=== PATIENT | female | born 1990 | race Caucasian/White ===

== ENCOUNTER 2018-03-01 14:37 | Emergency (ER) | payer OTHER ==
[2018-03-01 15:10] LABS: BASO % 0.4 % (0.0-1.0); EOS % 0.3 % (0.0-3.0); HEMATOCRIT 36.2 % (36.0-47.0); HEMOGLOBIN 12.7 g/dl (12.0-15.5); IMMATURE GRANULOCYTE % 0.4 % (0-3.0); LYMPH # 2.9 10^3/uL (1.5-6.5); MEAN CORPUSCULAR HEMOGLOBIN 29.5 pg (27.0-33.0); MEAN CORPUSCULAR HGB CONC 35.1 g/dl (32.0-36.5); MONO # 0.7 10^3/uL (0.0-0.8); MONO % 7.2 % (0.0-5.0); NEUTROPHILS # 5.9 10^3/uL (1.8-7.7); NEUTROPHILS % 61.7 % (36.0-66.0); PLATELET COUNT, AUTOMATED 265 10^3/uL (150-450); RED BLOOD COUNT 4.31 10^6/uL (4.00-5.40); RED CELL DISTRIBUTION WIDTH 12.8 % (11.5-14.5); WHITE BLOOD COUNT 9.5 10^3/uL (4.0-10.0)
[2018-03-01 15:21] LABS: KETONE, URINE AUTO RFX NEGATIVE (NEGATIVE); LEUKOCYTE ESTERASE UR AUTO RFX NEGATIVE (NEGATIVE); NITRITE, URINE AUTO RFX NEGATIVE (NEGATIVE); RBC, URINE AUTO RFX 0 /HPF (0-3); SQUAM EPITHELIAL CELL UR AURFX 1 /HPF (0-6); WBC, URINE AUTO RFX 0 /HPF (0-3)
[2018-03-01 16:15] LABS: HCG, SERUM QUANTITATIVE 121149 MIU/ML
== END 2018-03-01 20:19 | disposition home or self-care (01) ==
LOC: M ED 14:37
DX: O44.01 Complete placenta previa NOS or without hemorrhage, first trimester (principal); O26.891 Other specified pregnancy related conditions, first trimester; R10.30 Lower abdominal pain, unspecified; Z3A.09 9 weeks gestation of pregnancy
CPT/HCPCS: 76801

== ENCOUNTER 2018-04-25 13:29 | Emergency (ER) | payer OTHER ==
[2018-04-25 15:18] LABS: HEMATOCRIT 32.6 % (36.0-47.0); HEMOGLOBIN 11.5 g/dl (12.0-15.5); MEAN CORPUSCULAR HEMOGLOBIN 30.5 pg (27.0-33.0); MEAN CORPUSCULAR HGB CONC 35.3 g/dl (32.0-36.5); MEAN CORPUSCULAR VOLUME 86.5 fl (80.0-96.0); PLATELET COUNT, AUTOMATED 232 10^3/uL (150-450); RED BLOOD COUNT 3.77 10^6/uL (4.00-5.40); RED CELL DISTRIBUTION WIDTH 13.5 % (11.5-14.5); WHITE BLOOD COUNT 7.3 10^3/uL (4.0-10.0)
[2018-04-25 15:20] LABS: ANION GAP 8 MEQ/L (8-16); BLOOD UREA NITROGEN 6 MG/DL (7-18); CALCIUM LEVEL 8.7 MG/DL (8.5-10.1); CARBON DIOXIDE LEVEL 26 MEQ/L (21-32); CHLORIDE LEVEL 105 MEQ/L (98-107); CREATININE FOR GFR 0.61 MG/DL (0.55-1.30); GLOMERULAR FILTRATION RATE > 60.0 (>60); GLUCOSE, FASTING 90 MG/DL (70-100); HCG, SERUM QUANTITATIVE 7365 MIU/ML; POTASSIUM SERUM 3.7 MEQ/L (3.5-5.1); SODIUM LEVEL 139 MEQ/L (136-145)
[2018-04-25 15:40] LABS: APPEARANCE, URINE CLEAR (CLEAR); BACTERIA, URINE AUTO NEGATIVE (NEGATIVE); BILIRUBIN, URINE AUTO NEGATIVE (NEGATIVE); BLOOD, URINE BLOOD NEGATIVE (NEGATIVE); COLOR, URINE STRAW (YELLOW); GLUCOSE, URINE (UA) AUTO NEGATIVE (NEGATIVE); KETONE, URINE AUTO NEGATIVE (NEGATIVE); LEUKOCYTE ESTERASE, URINE AUTO NEGATIVE (NEGATIVE); MUCUS, URINE SMALL (NEGATIVE); NITRITE, URINE AUTO NEGATIVE (NEGATIVE); PROTEIN, URINE AUTO NEGATIVE (NEGATIVE); RBC, URINE AUTO 3 /HPF (0-3); SPECIFIC GRAVITY URINE AUTO 1.004 (1.002-1.035); SQUAMOUS EPITHELIAL CELL UR AU 1 /HPF (0-6); UROBILINOGEN, URINE AUTO 0.2 mg/dL (0.0-2.0); WBC, URINE AUTO 2 /HPF (0-3)
[2018-04-25] MEDS: ACETAMINOPHEN 325 MG TAB PO (16:25)
== END 2018-04-25 17:35 | disposition home or self-care (01) ==
LOC: M ED 13:29
DX: O20.9 Hemorrhage in early pregnancy, unspecified (principal); Z3A.17 17 weeks gestation of pregnancy
CPT/HCPCS: 76811

== ENCOUNTER 2018-05-29 17:51 | Outpatient (CLI) | payer OTHER ==
[2018-05-29 19:02] LABS: HEMOGLOBIN 11.2 g/dl (12.0-15.5); MEAN CORPUSCULAR HEMOGLOBIN 30.9 pg (27.0-33.0); MEAN CORPUSCULAR VOLUME 88.2 fl (80.0-96.0); PLATELET COUNT, AUTOMATED 255 10^3/uL (150-450); RED BLOOD COUNT 3.63 10^6/uL (4.00-5.40); RED CELL DISTRIBUTION WIDTH 12.6 % (11.5-14.5); WHITE BLOOD COUNT 7.5 10^3/uL (4.0-10.0)
== END 2018-05-29 21:10 | disposition home or self-care (01) ==
LOC: M LDO 17:51
DX: O99.89 Other specified diseases and conditions complicating pregnancy, childbirth and the puerperium (principal); O9A.212 Injury, poisoning and certain other consequences of external causes complicating pregnancy, second trimester; W19.XXXA Unspecified fall, initial encounter; Y92.89 Other specified places as the place of occurrence of the external cause; Z3A.21 21 weeks gestation of pregnancy
CPT/HCPCS: G0463

== ENCOUNTER 2018-08-12 04:47 | Outpatient (CLI) | payer OTHER ==
[~2018-08-12] VITALS: Ht 167.6 cm; Wt 82.0 kg
[~2018-08-12 04:47] MED LIST: ACET50TA PO; FE T325T PO; IBUP80TA PO; PRENTAB9 PO; PSEU30TA21 PO; RIGHTAB2 PO; SUDA15LI2 PO
[2018-08-12 05:06] VITALS: BP 121/73
--- NOTE | 2018-08-12 06:57 | IPNPDOC ---
Text Note Date of Service The patient was seen on 08/12/18. NOTE Triage Note Sparkle is a 28yo with SIUP at 32w5d by 9wk u/s presenting with gush of fluid after taking a bath in the middle of the night. It was clear. Leaking did not continue. No ctx. Feels good movement. No vaginal bleeding. No f/c/n/v/CP/SOB. Patient has not been seen in clinic recently. She cancelled her last appt because she had a conflict with class. She reports she did do her 28wk labs. O positive blood type. 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 No pooling, negative valsalva. nitrazine neg. SCE: cl/th/high TAUS: arce IUP with cephalic presentation, BETH 12.6cm, +FCA, +FM, anterior placenta Cat I FHRT with +accels, -decels, mod loretta [place]: no ctx Labs: Negative ferning, negative nitrazine Assessment: Sparkle is a 28yo with SIUP at 32w5d by 9wk u/s with NO evidence of LOF based on negative nitrazine/ferning/valsalva/pooling. BETH 12.6cm. Cephalic. No regular ctx. Cat I FHRT. Patient has not had reliable care in this , overdue for an appt in clinic. Plan: -Safe for discharge home -Discussed with patient need for good care and reliable future appts. Instructed her to call the clinic later today to make an appt for as soon as available. -Discussed return precautions at length -Encouraged increased hydration MD GINNY Castelan,Tomer, I+O VSTomer, I+O Vital Signs Date Time Temp Pulse Resp B/P (MAP) Pulse Ox O2 Delivery O2 Flow Rate FiO2 08/12/18 05:06 98.3 102 18 121/73 (89) Adri Treadwell MD Aug 12, 2018 06:51
== END 2018-08-12 07:36 | disposition home or self-care (01) ==
LOC: M LDO 04:47
PROVIDERS: ATTEND Obstetrics & Gynecology
DX: O26.893 Other specified pregnancy related conditions, third trimester (principal); O47.03 False labor before 37 completed weeks of gestation, third trimester; Z3A.32 32 weeks gestation of pregnancy
CPT/HCPCS: 59025; G0378; G0463

== ENCOUNTER 2018-09-20 17:37 | Inpatient (IN) | payer OTHER ==
[2018-09-20] VITALS (8 sets, daily range): BP systolic 111–141; BP diastolic 70–96
[~2018-09-20] VITALS: Ht 167.6 cm; Wt 87.0 kg
[~2018-09-20 17:37] MED LIST changes: -ACET50TA PO; +MAPA500T17 PO
[2018-09-20] MEDS ORDERED: METF10004 PO (17:46)
[2018-09-20] MEDS ORDERED: PENICILLIN G POTASSIUM IV 5 MU in D5W MINI-BAG PLUS 100 ML IV STA (18:11)
[2018-09-20] MEDS ORDERED: LACTATED RINGER'S 1000 ML IV STA (18:11)
[2018-09-20] MEDS ORDERED: LR 1,000 ML IV SCH ×2 (18:11→21:53)
--- NOTE | 2018-09-20 18:27 | HPEPDOC ---
Obstetrical History & Physical General Date of Admission Sep 20, 2018 at 18:10 History of Present Illness 28 y/o at 38+1 with SROM mid-afternoon, clear fluid continuous since. No VB/reg ctx's. Irreg ctx's only. Pos FM. Preg c/b A2GDM, on metformin 1000 BID, chart review shows good control after metformin started Chief Complaint: LOF, term Information Provided By: Patient Care Care: Limited Care (gaps in care 9 to 19 wks and 24-34 wks) Dating Final EDC by: 1st trimester (US) (8 wk scan) Past Medical History Past Obstetrical History : Past Obstetrical History: Multigravida Type of Delivery: Spontaneous Vaginal Del. 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[employer]AL History: No pertinent history Past Medical History Medical History denies Surgical History: Tonsilectomy, [place] teeth Family History Significant Family History: No pertinent family hx Social History Marital Status: Family situation: Spouse/partner home Psychosocial History: No pertinent psych hx * Smoker: non-smoker Alcohol: Denies Drugs: denies Abuse Violence Screening Have you been hit/kicked/slapp: No Have you been sexually assault: No Imunizations Tdap status: current Influenza Status: current Allergies Coded Allergies: No Known Allergies (Unverified , 08/07/13) Medications Scheduled Metformin Hydrochloride (Metformin HCl) 1,000 Mg Tab, 1,000 MG PO BID Multivitamins/ ( 27-0.8 mg) 1 Tab Tab, 1 TAB PO DAILY Physical Examination Physical Examination GENERAL: Alert and oriented times three. ABDOMEN: Gravid and non-tender to touch. FETUS: Is vertex (VTX) by sterile vaginal examination (SVE), 3-4/70/-2, EFW 8.5- 9 lbs EXTREMITIES: No edema. Vital Signs/I&O Vital Signs Date Time Temp Pulse Resp B/P (MAP) Pulse Ox O2 Delivery O2 Flow Rate FiO2 09/20/18 17:49 97 18 139/92 (108) 09/20/18 17:43 98.5 Laboratory Data Urine Culture: Contaminated Pertinent Laboratoy Data Blood Type: O+ RBC Antibody Screen: Negative HIV: Negative Hepatitis B: Negative Hepatitis C: Unknown Rapid Plasma Reagin: Nonreactive Rubella: Immune Varicella: Immune Chlamydia/Gonorrhea: Negative Group B Streptococcus: Positive Glucose Tolerance Test: 147 Anatomy Ultrasound Ultrasound Date: Sep 11, 2018 Placenta Location: Posterior Normal Anatomy: Yes (on anatomy scan 3DEC normal anatomy. 27MAR grth scan was 3653, >90%ile) Assessment Variability: Moderate Accelerations: Positive Decelerations: Prolonged (x1 just now) Tocometer Contractions: Yes Frequency: irregular Assessment/Plan Assessment SROM, GDMA2 Plan Admit and orient. Eye Technician and consent. Diet: clears Group B Streptococcus (GBS) pos, PCN per SOP Labs and intravenous (IV) per unit protocol. Counseled on Pitocin and induction of labor (IOL). Lactated Ringers (LR): Bolus 1000 mL per SOP if desires epidural, then at 125 mL/hr. Anticipate normal spontaneous delivery () C-S as appropriate. GALILEO RUSH MD Sep 20, 2018 18:27
[2018-09-20 18:49] LABS: HEMATOCRIT 29.5 % (36.0-47.0); MEAN CORPUSCULAR HEMOGLOBIN 22.9 pg (27.0-33.0); MEAN CORPUSCULAR HGB CONC 30.5 g/dl (32.0-36.5); MEAN CORPUSCULAR VOLUME 75.1 fl (80.0-96.0); PLATELET COUNT, AUTOMATED 253 10^3/uL (150-450); RED BLOOD COUNT 3.93 10^6/uL (4.00-5.40); WHITE BLOOD COUNT 8.8 10^3/uL (4.0-10.0)
[2018-09-20 19:43] LABS: BLOOD UREA NITROGEN 9 MG/DL (7-18); CALCIUM LEVEL 8.3 MG/DL (8.5-10.1); CARBON DIOXIDE LEVEL 21 MEQ/L (21-32); CHLORIDE LEVEL 106 MEQ/L (98-107); CREATININE FOR GFR 0.62 MG/DL (0.55-1.30); GLOMERULAR FILTRATION RATE > 60.0 (>60); GLUCOSE, FASTING 95 MG/DL (70-100); POTASSIUM SERUM 4.2 MEQ/L (3.5-5.1); SODIUM LEVEL 137 MEQ/L (136-145)
[2018-09-20] MEDS ORDERED: OXYTOCIN DRIP 30 UNITS in APPROPRIATE DILUENT 1 EA IV SCH (22:00)
[2018-09-20] MEDS: PENICILLIN G POTASSIUM IV 2.5 MU in APPROPRIATE DILUENT 1 EA IV SCH (22:50)
[2018-09-20] MEDS ORDERED: FENTANYL 2MCG/ML ROPIVACAINE 0.2% IN 0.9% NACL 100ML IVBAG As Ordered ONE (23:35)
[2018-09-21] VITALS (26 sets, daily range): BP systolic 104–144; BP diastolic 56–94
[2018-09-21] MEDS ORDERED: REFRIGERATOR IV KEYS XX PRN (00:16)
[2018-09-21] MEDS ORDERED: ePHEDrine SULFATE 25 MG/5 ML(5MG/ML) SYRINGE IV PRN (00:16)
[2018-09-21] MEDS ORDERED: ONDANSETRON 4MG/2ML VIAL (J2405) IV PRN ×3 (00:16→06:15)
[2018-09-21] MEDS ORDERED: diphenhydrAMINE INJ 50MG/ML VIAL (J1200) IV PRN ×2 (00:16→05:35)
[2018-09-21] MEDS ORDERED: NALOXONE INJ 0.4 MG/1 ML VIAL (J2310) IV PRN ×3 (00:16→05:35)
[2018-09-21] MEDS ORDERED: FENTANYL/ROPIVACAINE/NACL BAG 100 ML EPIDURAL SCH (00:16)
[2018-09-21] MEDS ORDERED: EPIDURAL/PCA KEYS XX PRN (00:16)
[2018-09-21] MEDS ORDERED: EPIDURAL COMMENT XX SCH (00:16)
[2018-09-21] MEDS ORDERED: LACTATED RINGER'S 1000 ML IV PRN (00:16)
[2018-09-21] MEDS: PENICILLIN G POTASSIUM IV 2.5 MU in APPROPRIATE DILUENT 1 EA IV SCH (03:12)
--- NOTE | 2018-09-21 03:58 | IPNPDOC ---
Text Note Date of Service The patient was seen on 09/21/18. NOTE Late note for 2330, 5apr exam FHT Cat 2, a few prolonged decels with pitocin, now off /2 Desires an epidural, this is fine. Recheck in 4 hrs, sooner prn. Sessions VS,Tomer, I+O VSTomer I+O Laboratory Tests 09/20/18 18:29 Red Blood Count 3.93 L, Mean Corpuscular Volume 75.1 L, Mean Corpuscular Hemoglobin 22.9 L, Mean Corpuscular Hemoglobin Concent 30.5 L, Red Cell Distribution Width 16.5 H, Calcium Level 8.3 L Vital Signs Date Time Temp Pulse Resp B/P (MAP) Pulse Ox O2 Delivery O2 Flow Rate FiO2 09/21/18 02:00 81 121/68 (85) 09/20/18 23:46 97.9 09/20/18 17:49 18 I&O- Last 24 Hours up to 6 AM 09/21/18 06:00 Intake Total 2250 ml Output Total 850 ml Balance 1400 ml SESSIONSGALILEO MD Sep 21, 2018 03:58
--- NOTE | 2018-09-21 04:15 | IPNPDOC ---
Text Note Date of Service The patient was seen on 09/21/18. NOTE Pit on again, was up to 6 mu/min Off now for a prolonged decel 1 hr ago Cx 5/70/-2, minimal change a/p: On the edge of latent to active labor. Plan on recheck when MVU's are >2 00 for 2 hours, will see if this happens w/o pitocin on board, if does not happen in ~3-4 hours, will start pitocin for the third time, although reluctantly due to her h/o prolonged decels within ~1 hr of using this prior x2. Reluctant to call an arrest of dilation until at least active labor due to her h/o prior vag delivery. Sessions VS,Tomer, I+O VS, Tomer I+O Laboratory Tests 09/20/18 18:29 Red Blood Count 3.93 L, Mean Corpuscular Volume 75.1 L, Mean Corpuscular Hemoglobin 22.9 L, Mean Corpuscular Hemoglobin Concent 30.5 L, Red Cell Distribution Width 16.5 H, Calcium Level 8.3 L Vital Signs Date Time Temp Pulse Resp B/P (MAP) Pulse Ox O2 Delivery O2 Flow Rate FiO2 09/21/18 02:00 81 121/68 (85) 09/20/18 23:46 97.9 09/20/18 17:49 18 I&O- Last 24 Hours up to 6 AM 09/21/18 06:00 Intake Total 2250 ml Output Total 850 ml Balance 1400 ml SESSIONS,GALILEO Mendez MD Sep 21, 2018 04:15
[2018-09-21] MEDS ORDERED: ceFAZolin 2 GM/D5W 50 ML IV BAG (J0690 PER 500MG) As Ordered ONE (04:28)
[2018-09-21] MEDS ORDERED: AZITHROMYCIN INJ 500MG VIAL (J0456) As Ordered ONE (04:28)
[2018-09-21] MEDS ORDERED: BICITRA 30ML SOLN UDC As Ordered ONE (04:28)
[2018-09-21] MEDS ORDERED: AZITHROMYCIN INJ 500 MG, VIAL MATE ADAPTER 1 EACH in D5W 250 ML IV ONE (04:30)
[2018-09-21] MEDS ORDERED: BICITRA 30ML SOLN UDC PO ONE (04:30)
[2018-09-21] MEDS ORDERED: NALBUPHINE HCL 10 MG/ML AMP (J2300) IV PRN (05:35)
[2018-09-21] MEDS ORDERED: METOCLOPRAMIDE INJ 10MG/2ML VIAL (J2765) IV PRN ×2 (05:35→06:15)
[2018-09-21] MEDS ORDERED: OXYTOCIN INJ 10 UNITS/ML VIAL (J2590) As Ordered ONE (05:41)
[2018-09-21] MEDS ORDERED: dexameTHASONE 4 MG/ML 1ML VIAL (J1100) As Ordered ONE (05:41)
[2018-09-21] MEDS ORDERED: fentaNYL 100 MCG/2 ML INJECTION (J3010) As Ordered ONE (05:41)
[2018-09-21] MEDS ORDERED: LIDOCAINE 2% W/EPIN INJ 20ML **PRES FREE As Ordered ONE (05:41)
[2018-09-21] MEDS ORDERED: KETOROLAC 60 MG/2 ML VIAL (J1885) As Ordered ONE (05:41)
[2018-09-21] MEDS ORDERED: KETAMINE HCL 200 MG/20 ML VIAL As Ordered ONE (05:41)
[2018-09-21] MEDS ORDERED: SODIUM BICARBONATE 8.4% INJ 50MEQ 50 ML VIAL As Ordered ONE (05:41)
[2018-09-21] MEDS ORDERED: MORPHINE PRES-FREE INJ 10 MG/10 ML VIAL (J2274) As Ordered ONE (05:42)
[2018-09-21] MEDS ORDERED: MIDAZOLAM INJ 2 MG/2 ML VIAL (J2250) As Ordered ONE (05:42)
[2018-09-21 05:58] LABS: CORD GAS ABE A -3.7; CORD GAS HCO3 A 25.3 MEQ/L; CORD GAS O2 SAT A 38.9 %; CORD GAS PCO2 A 60.5 mmHg; CORD GAS PH A 7.239 UNITS; CORD GAS PO2 A 20.2 mmHg; CORD GAS SBC A 19.9 MEQ/L; CORD GAS TCO2 A 27.1 MEQ/L
[2018-09-21 06:01] LABS: CORD GAS ABE V -3.7; CORD GAS HCO3 V 22.8 MEQ/L; CORD GAS O2 SAT V 88.5 %; CORD GAS PCO2 V 45.8 mmHg; CORD GAS PH V 7.314 UNITS; CORD GAS PO2 V 46.4 mmHg; CORD GAS SBC V 21.2 MEQ/L; CORD GAS TCO2 V 24.2 MEQ/L
[2018-09-21] MEDS ORDERED: OXYTOCIN DRIP 30 UNITS in APPROPRIATE DILUENT 1 EA IV SCH (06:08)
[2018-09-21] MEDS ORDERED: MEASLES,MUMPS,RUBELLA VACCINE INJ (MMR-II) (90707) SC SCH (06:15)
[2018-09-21] MEDS ORDERED: fentaNYL 100 MCG/2 ML INJECTION (J3010) IV PRN (06:15)
[2018-09-21] MEDS ORDERED: RHOGAM 300 MCG (1500 IU) INJ (J2790) IM SCH (06:15)
[2018-09-21] MEDS ORDERED: OXYTOCIN 30 UNITS IN 0.9% NaCl 500ML IV BAG (J2590) As Ordered ONE (06:38)
--- NOTE | 2018-09-21 08:45 | RO ---
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 PREOPERATIVE DIAGNOSES: Nonreassuring heart tracing, remote from delivery, arrest of dilation, likely macrosomia. POSTOPERATIVE DIAGNOSES: Nonreassuring heart tracing, remote from delivery, arrest of dilation with confirmed macrosomia. ANESTHESIA: Epidural. ESTIMATED BLOOD LOSS: 500 mL. DRAINS: 200 mL of clear urine in Jaquez catheter at the end of the case. FLUIDS REPLACED: 1300 mL of lactated Ringer and 30 units of Pitocin in the bag immediately after placenta delivery. PREOPERATIVE ANTIBIOTICS: Cefazolin 2 grams intravenous (IV) and azithromycin 500 mg IV. PROCEDURE: Primary low transverse section. SPECIMENS: None. INDICATION: The patient was admitted with spontaneous ruptured membranes and made very slow progress from loose 3 cm to a tight 5 cm and failed Pitocin twice due to prolonged decelerations. She then began to have prolonged decelerations without Pitocin on board and due to her unsatisfactory change in dilation and the prolonged decelerations and the feared macrosomia with her complicated by metformin-dependent gestational diabetes and that she was remote from delivery, I strongly recommended a primary low transverse section, and the patient agreed. Also, pushed for 3 hours with her 7 lb first baby. Informed consent was obtained, and operating room (OR) team was mobilized. FINDINGS: Pfannenstiel skin incision, low transverse uterine incision, clear fluid, macrosomic male weighing 9 pounds 4 ounces, scores 8 and 10. DESCRIPTION OF THE OPERATION: The patient was taken to the operating room with an IV in place, and her epidural was used to obtain what was thought to be an adequate neuraxial block. The heart tones were normal before the prep and after positioning. Internals were removed, and two preps were performed on the abdomen to my satisfaction. After she was draped, a Pfannenstiel skin incision was carried down to the layer of the fascia after determining that her epidural was adequate. That incision was extended bilaterally to the extent of the skin incision. Osito clamps placed on the superior and inferior aspects of the fascial incision. However, the patient did not tolerate any manipulation of the superior aspect of fascial incision. She felt every clamp. We were able to dissect the underlying rectus muscles off the inferior aspect of incision while anesthesia addressed her low epidural block. Throughout the case they had to use Propofol, Ketamine, and Versed to get her through the case due to her epidural not being quite adequate. After they told me to resume, I was able to dissect sharply the rectus muscles off the superior aspect of the fascial incision. I the muscles in the midline and breeched the peritoneum and stretched the peritoneum to adequacy. The bladder blade was placed. A bladder flap was easily created, and a low transverse uterine incision was performed down to the level of the amnion which was breeched with clear fluid noted. With the installation and service technician putting pressure on the fundus, we were able to deliver the through the incision without difficulty, although it was a tight fit due to his macrosomia. The came out vigorous with good tone and crying. Cord was clamped times two and cut. Cord blood was obtained, as well as cord gases, which were normal. Arterial pH was 7.2 with a base excess of negative 3.7. Venous pH was 7.3 with a base excess of negative 3.7. The placenta was then delivered with traction and noted to be intact. The uterus was then delivered through the abdominal incision, placed on the abdominal wall, wrapped in a warm sponge, and the uterus was cleared of all clots and debris times two with dry sponges. I then closed uterine incision with a 0 Vicryl in running locked fashion from left to right. I then imbricated the incision with a 4-0 Monocryl from left to right without difficulty. A small amount of cautery was needed at serosal edges to obtain hemostasis. I then irrigated behind the uterus. The uterus was returned to its anatomical state. Small clots were removed bilaterally from the pericolic gutters, and inspection of the uterine incision showed excellent hemostasis. The peritoneum was then closed from superior to inferior with a running 2-0 Vicryl. The rectus bellies were inspected and found to be hemostatic. The fascia was closed from left to right with a running 0 Vicryl without difficulty. Subcutaneous tissue was copiously irrigated and reapproximated with 2-0 Vicryl without difficulty. The skin was closed with 4-0 Monocryl in a subcuticular fashion from left to right. Optifoam dressing was placed without difficulty. The patient's legs were frogged, and a bimanual examination revealed a firm uterus at U-1 with a small amount of clots ejected from the cervix and vagina. The patient was cleaned off and transferred to the postanesthesia care unit (PACU) in stable condition. All counts, including sponge, needle, and instruments were correct times three. MTDD
[2018-09-21] MEDS: KETOROLAC 30 MG/ML VIAL (J1885) IV SCH ×3 (13:08→23:31)
[2018-09-21] MEDS: DOCUSATE SODIUM 100 MG CAP PO SCH ×2 (14:50→20:32)
[2018-09-21] MEDS: PRENATAL VITAMINS CHEWABLE TABLET PO SCH (14:50)
[2018-09-21] MEDS: PERCOCET 5MG/325MG TAB PO PRN (23:51)
[2018-09-22] VITALS (8 sets, daily range): BP systolic 111–142; BP diastolic 59–95
[2018-09-22 06:59] LABS: HEMATOCRIT 21.5 % (36.0-47.0); MEAN CORPUSCULAR HEMOGLOBIN 22.9 pg (27.0-33.0); MEAN CORPUSCULAR HGB CONC 30.2 g/dl (32.0-36.5); MEAN CORPUSCULAR VOLUME 75.7 fl (80.0-96.0); PLATELET COUNT, AUTOMATED 209 10^3/uL (150-450); RED BLOOD COUNT 2.84 10^6/uL (4.00-5.40); WHITE BLOOD COUNT 8.1 10^3/uL (4.0-10.0)
[2018-09-22 07:10] LABS: HEMOGLOBIN 6.5 g/dl (12.0-15.5)
[2018-09-22] MEDS: DOCUSATE SODIUM 100 MG CAP PO SCH ×2 (07:34→19:59)
[2018-09-22] MEDS: IBUPROFEN 800 MG TAB PO SCH ×2 (07:35→16:00)
--- NOTE | 2018-09-22 09:26 | IPNPDOC ---
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 Sparkle is overall doing well other than some abdominal soreness and nipple irritation from . Pain medications are helping. She has ambulated a couple times without difficulty and denies any dizziness, SOB, or chest pain. She is tolerating a regular diet and has minimal lochia. She denies any nausea/vomiting or fevers/chills. Vitals - VSS, afebrile, normotensive, non tachycardic General - AAOX3, sitting up in bed , NAD Abdomen - Fundus firm at U-1. No fundal tenderness. Bandage left in place over incision. Appropriate tenderness to palpation. Extremities - Minimal edema, SCDs in place UO - Excellent, >100cc/hr Labs: pre op h/h 9.0/29.5 --> post op h/h 6.5/21.5 Sparkle is overall doing well. Abdominal and incisional soreness is at level expected after section. She has normal vital signs and excellent urine output. Note made of low h/h, however she has no symptoms of dizziness, SOB, or weakness when ambulating. Very low suspicion for any active bleeding, as her starting h/h was low even pre operatively. Should she develop symptoms of anemia would consider blood transfusion later today. I talked about this with Sparkle in detail. All questions answered. Continue routine post op care otherwise. DO Raúl VS, I&O, 24H, Tomer Vital Signs/I&O Vital Signs Date Time Temp Pulse Resp B/P (MAP) Pulse Ox O2 Delivery O2 Flow Rate FiO2 09/22/18 06:00 98.6 82 17 111/63 (79) 09/21/18 18:00 97 I&O- Last 24 Hours up to 6 AM 09/22/18 06:00 Intake Total 3780 ml Output Total 6850 ml Balance -3070 ml Laboratory Data 24H LABS Laboratory Tests 2 09/22/18 06:21: Nucleated Red Blood Cells % (auto) 0.0 CBC/BMP Laboratory Tests 09/22/18 06:21 Red Blood Count 2.84 L, Mean Corpuscular Volume 75.7 L, Mean Corpuscular Hemoglobin 22.9 L, Mean Corpuscular Hemoglobin Concent 30.2 L, Red Cell Distribution Width 16.7 H DUANE COELHO DO Sep 22, 2018 09:26
[2018-09-22] MEDS: PERCOCET 5MG/325MG TAB PO PRN ×3 (10:33→19:59)
[2018-09-22] MEDS: PRENATAL VITAMINS CHEWABLE TABLET PO SCH (10:33)
[2018-09-22] MEDS: SIMETHICONE 80 MG CHEW TAB PO PRN (16:00)
--- NOTE | 2018-09-22 17:02 | IPNPDOC ---
Progress Note Date of Service: Sep 22, 2018 Progress Note Re assessed Ms. Ortiz this afternoon. She has been ambulating and voiding, she's just very tired. She has incisional pain, but heating pads are helping along with her PO medications. She voiding, passing gas, and has no nausea. Vitals - VSS General - Very pale appearing, but AAOX3, NAD Abdomen - Bandage over incision and clean/dry/intact. Appropriate tenderness to palpation of her abdomen. No rebound, guarding, or peritoneal signs. UO - appropriate Ms. Ortiz is very fatigued and has symptomatic anemia. I recommended transfusion of PRBCs for her symptoms. I counseled her on all risks and benefits of transfusion and she elects to proceed. Consent form signed. Will transfuse 1u PRBCs now. Benadryl beforehand. All patient questions answered. DO Raúl VS, I&O, 24H, Tomer Vital Signs/I&O Vital Signs Date Time Temp Pulse Resp B/P (MAP) Pulse Ox O2 Delivery O2 Flow Rate FiO2 09/22/18 15:30 18 09/22/18 14:08 98.2 87 137/84 (101) 99 I&O- Last 24 Hours up to 6 AM 09/22/18 06:00 Intake Total 3780 ml Output Total 6850 ml Balance -3070 ml Laboratory Data 24H LABS Laboratory Tests 2 09/22/18 06:21: Nucleated Red Blood Cells % (auto) 0.0 CBC/BMP Laboratory Tests 09/22/18 06:21 Red Blood Count 2.84 L, Mean Corpuscular Volume 75.7 L, Mean Corpuscular Hemoglobin 22.9 L, Mean Corpuscular Hemoglobin Concent 30.2 L, Red Cell Distribution Width 16.7 H DUANE COELHO DO Sep 22, 2018 17:02
[2018-09-22] MEDS ORDERED: diphenhydrAMINE 25 MG CAP PO ONE (17:15)
[2018-09-23] MEDS: IBUPROFEN 800 MG TAB PO SCH ×2 (00:08→07:45)
[2018-09-23 02:00] VITALS: BP 138/83
[2018-09-23] MEDS: PERCOCET 5MG/325MG TAB PO PRN ×2 (02:27→06:22)
[2018-09-23] MEDS: SIMETHICONE 80 MG CHEW TAB PO PRN (02:27)
[2018-09-23] MEDS ORDERED: MORPHINE 4 MG/ML 1ML VIAL/SYRINGE (J2270) IV STA (02:51)
[2018-09-23 06:00] VITALS: BP 135/74
[2018-09-23] MEDS: DOCUSATE SODIUM 100 MG CAP PO SCH (07:44)
[2018-09-23] MEDS: PRENATAL VITAMINS CHEWABLE TABLET PO SCH (07:45)
--- NOTE | 2018-09-23 07:58 | IPNPDOC ---
Text Note Date of Service The patient was seen on 09/23/18. NOTE POD2 PLTCS, now >48 hours States feeling well, pain controlled with prescribed meds. Baby bonding and feeding well. No heavy VB. Lochia slowing. Ambulatory. Tolerating PO without issues. Jaquez out and voiding, UO excellent. S/P 1 unit blood last night, f eeling much better after this. VSSAF NAD A&O RRR CTAB LE no C/C/E Appropr and expected abdom tenderness, Ut at U-2, firm Inc bandage C/D/I a/p: Doing well. Cont routine postop care. D/C today when baby gets an order. Sessions VS,Tomer, I+O VSTomer I+O Vital Signs Date Time Temp Pulse Resp B/P (MAP) Pulse Ox O2 Delivery O2 Flow Rate FiO2 09/23/18 06:52 18 09/23/18 06:00 98.3 79 135/74 (94) 09/22/18 22:00 98 I&O- Last 24 Hours up to 6 AM 09/23/18 06:00 Intake Total 420 ml Balance 420 ml SESSIONS,GALILEO Mendez MD Sep 23, 2018 07:58
--- NOTE | 2018-09-23 08:05 | DS.PDOC ---
Discharge Summary General Date of Admission Sep 20, 2018 at 18:10 Date of Discharge [id number] Discharge Summary ADMITTING DIAGNOSES: SROM, anemia HCT 29 DISCHARGE DIAGNOSES: PLTCS for arrest of dilation, NRFHT, remote from delivery, confirmed macrosomia HOSPITAL COURSE: SROM, had several prolonged decelerations with and without pitocin on board, never dilated past 5 cm. Macrosomic . delivery uncomplicated. course uncomplicated other than a need for 1 unit of blood given on the evening of POD1. [place] immediately improvement. DISCHARGE MEDICATIONS: Motrin, Lanolin, Percocet, Colace DISCHARGE INSTRUCTIONS: Nothing in the vagina for 6 weeks. No driving for 2 weeks. No bathing for 4 weeks, shower only. F/U in OBGYN clinic in 1-2 weeks for incision check and routine follow-up in 6-8 weeks. Sessions Vital Signs/I&Os Vital Signs Date Time Temp Pulse Resp B/P (MAP) Pulse Ox O2 Delivery O2 Flow Rate FiO2 09/23/18 06:52 18 09/23/18 06:00 98.3 79 135/74 (94) 09/22/18 22:00 98 I&O- Last 24 Hours up to 6 AM 09/23/18 06:00 Intake Total 420 ml Balance 420 ml Discharge Medications Scheduled Metformin Hydrochloride (Metformin HCl) 1,000 Mg Tab, 1,000 MG PO BID, (Reported) Multivitamins/ ( 27-0.8 mg) 1 Tab Tab, 1 TAB PO DAILY, (Reported) Allergies Coded Allergies: No Known Allergies (Unverified , 08/07/13) SESSIONS,GALILEO Mendez MD Sep 23, 2018 08:05
[2018-09-23] MEDS ORDERED: COLA100C5 PO (08:25)
[2018-09-23] MEDS ORDERED: IBUP-1114 PO (08:26)
[2018-09-23] MEDS ORDERED: OXYC1TAB23 PO ×2 (08:26→08:27)
== END 2018-09-23 12:45 | disposition home or self-care (01) | DRG 773 ==
LOC: M LDO 17:37 → M LDI 18:10 → M OBS 09-21 08:00
PROVIDERS: ADMIT Obstetrics & Gynecology; ATTEND Obstetrics & Gynecology
PROC: 10D00Z1 Extraction of Products of Conception, Low, Open Approach (ICD-10-PCS; principal; 2018-09-21 09:49)
PROC: 30233N1 Transfusion of Nonautologous Red Blood Cells into Peripheral Vein, Percutaneous Approach (ICD-10-PCS; 2018-09-22)
DX: O24.425 Gestational diabetes mellitus in childbirth, controlled by oral hypoglycemic drugs (principal); Z3A.38 38 weeks gestation of pregnancy; O99.824 Streptococcus B carrier state complicating childbirth; O62.0 Primary inadequate contractions; O76 Abnormality in fetal heart rate and rhythm complicating labor and delivery; O36.63X0 Maternal care for excessive fetal growth, third trimester, not applicable or unspecified; O99.03 Anemia complicating the puerperium; Z37.0 Single live birth

== ENCOUNTER 2019-01-01 02:39 | Emergency (ER) | payer OTHER ==
[~2019-01-01] VITALS: Ht 167.6 cm; Wt 74.5 kg
[~2019-01-01 02:39] MED LIST changes: +COLA100C5 PO; +IBUP-1114 PO; +METF10004 PO; +OXYC1TAB23 PO
[2019-01-01] MEDS ORDERED: NS 1,000 ML IV ONE (03:45)
[2019-01-01 03:52] LABS: BASO # 0.1 10^3/uL (0.0-0.2); BASO % 0.8 % (0.0-1.0); EOS # 0.1 10^3/uL (0.0-0.50); EOS % 0.9 % (0.0-3.0); HEMATOCRIT 36.3 % (36.0-47.0); HEMOGLOBIN 11.5 g/dl (12.0-15.5); MEAN CORPUSCULAR HEMOGLOBIN 25.4 pg (27.0-33.0); MEAN CORPUSCULAR HGB CONC 31.7 g/dl (32.0-36.5); MEAN CORPUSCULAR VOLUME 80.1 fl (80.0-96.0); MONO # 0.6 10^3/uL (0.0-0.8); MONO % 9.2 % (0.0-5.0); NEUTROPHILS # 2.8 10^3/uL (1.8-7.7); NEUTROPHILS % 42.8 % (36.0-66.0); PLATELET COUNT, AUTOMATED 319 10^3/uL (150-450); RED BLOOD COUNT 4.53 10^6/uL (4.00-5.40); WHITE BLOOD COUNT 6.6 10^3/uL (4.0-10.0)
[2019-01-01 03:55] LABS: HCG, SERUM QUALITATIVE NEGATIVE (NEGATIVE)
[2019-01-01 04:04] LABS: ALBUMIN 4.2 GM/DL (3.2-5.2); ALT/SGPT 38 U/L (12-78); BILIRUBIN,DIRECT < 0.1 MG/DL (0.0-0.2); BILIRUBIN,TOTAL 0.3 MG/DL (0.2-1.0); BLOOD UREA NITROGEN 11 MG/DL (7-18); CALCIUM LEVEL 9.4 MG/DL (8.5-10.1); CARBON DIOXIDE LEVEL 28 MEQ/L (21-32); CHLORIDE LEVEL 108 MEQ/L (98-107); CREATININE FOR GFR 0.99 MG/DL (0.55-1.30); GLOMERULAR FILTRATION RATE > 60.0 (>60); GLUCOSE, FASTING 97 MG/DL (70-100); LIPASE 254 U/L (73-393); POTASSIUM SERUM 4.3 MEQ/L (3.5-5.1); SODIUM LEVEL 141 MEQ/L (136-145); TOTAL PROTEIN 8.2 GM/DL (6.4-8.2)
[2019-01-01] MEDS: GASTROGRAFIN SOLUTION 30ML PO SCH ×2 (04:18→04:31)
[2019-01-01] MEDS ORDERED: ISOVUE-370 76% 100ML VIAL (Q9967) As Ordered ONE (05:12)
[2019-01-01 05:20] LABS: APPEARANCE, URINE CLEAR (CLEAR); BACTERIA, URINE AUTO NEGATIVE (NEGATIVE); BILIRUBIN, URINE AUTO NEGATIVE (NEGATIVE); BLOOD, URINE BLOOD NEGATIVE (NEGATIVE); COLOR, URINE STRAW (YELLOW); GLUCOSE, URINE (UA) AUTO NEGATIVE (NEGATIVE); KETONE, URINE AUTO NEGATIVE (NEGATIVE); LEUKOCYTE ESTERASE, URINE AUTO NEGATIVE (NEGATIVE); NITRITE, URINE AUTO NEGATIVE (NEGATIVE); PROTEIN, URINE AUTO NEGATIVE (NEGATIVE); RBC, URINE AUTO 0 /HPF (0-3); SPECIFIC GRAVITY URINE AUTO 1.012 (1.002-1.035); SQUAMOUS EPITHELIAL CELL UR AU 0 /HPF (0-6); UROBILINOGEN, URINE AUTO 0.2 mg/dL (0.0-2.0); WBC, URINE AUTO 1 /HPF (0-3)
--- NOTE | 2019-01-01 07:24 | REPVR ---
EXAM: CT Abdomen and Pelvis Without Contrast EXAM DATE/TIME: 01/01/2019 5:43 AM CLINICAL HISTORY: 28 years old, female; Abdominal pain; Localized; Right; Additional info: R sided pain TECHNIQUE: Imaging protocol: Axial computed tomography images of the abdomen and pelvis without contrast. Coronal and sagittal reformatted images were created and reviewed. Radiation optimization: All CT scans at this facility use at least one of these dose optimization techniques: automated exposure control; mA and/or kV adjustment per patient size (includes targeted exams where dose is matched to clinical indication); or iterative reconstruction. COMPARISON: CT ABD PELVIS WITH CONTRAST 01/04/2015 10:53 PM FINDINGS: Lungs: The visualized portions of the lung bases are normal. Liver: There are no focal liver lesions present. Gallbladder and bile ducts: The gallbladder is partially contracted. There is heterogeneous density in the gallbladder lumen, probably due to noncalcified or minimally calcified stones. There is no biliary ductal dilation. Pancreas: The pancreas is normal with no ductal dilation. Spleen: The spleen is normal. Adrenals: The adrenal glands are normal. Kidneys and ureters: The kidneys are normal. There are no ureteral stones or hydronephrosis. Stomach and bowel: There is no dilation or thickening of the colon. The small bowel appears unremarkable. Appendix: A normal appendix is identified. Intraperitoneal space: There is no evidence of free intraperitoneal or pelvic fluid. There is no free intraperitoneal air. Vasculature: The aorta is normal. No aneurysm. Lymph nodes: No lymphadenopathy is seen. Bladder: The bladder is unremarkable. No stones identified. Reproductive: The uterus is retroverted. Bones/joints: No suspicious osseous lesions. No acute fractures or dislocations. Soft tissues: Unremarkable. IMPRESSION: 1. Normal appearance of the appendix. 2. Cholelithiasis. Assessment of the gallbladder is limited by partial contraction and lack of contrast. No gross signs of acute cholecystitis. If clinically indicated, further assessment can be performed with ultrasound. Electronically signed by: Wendy Posada On 01/01/2019 07:24:13 AM
[2019-01-01 07:43] VITALS: BP 127/72
== END 2019-01-01 07:46 | disposition home or self-care (01) ==
LOC: M ED 02:39
DX: R10.9 Unspecified abdominal pain (principal); Z79.899 Other long term (current) drug therapy
CPT/HCPCS: 74176; 80048; 80076; 81001; 83690; 84703; 85025; 87086; 96360; 96361; 99283; Q9963; Q9967

== ENCOUNTER → 2019-06-07 | Outpatient (REF) | payer OTHER | LOC: M SFHCLERA 18:08 | PROVIDERS: ATTEND Nurse Practitioner Family | DX: R53.81 Other malaise (principal) ==